=== PATIENT | male | born 1930 ===

== ENCOUNTER 2017-08-30 13:30 | Emergency (ER) | payer MEDICARE ==
[2017-08-30 14:07] VITALS: RESP 18
[2017-08-30 14:42] LABS: URINE BILIRUBIN NEGATIVE (NEGATIVE); URINE BLOOD NEGATIVE (NEGATIVE); URINE CLARITY Clear (Clear); URINE COLOR Yellow (YELLOW); URINE GLUCOSE (UA) NORMAL (Normal); URINE LEUKOCYTE ESTERASE NEG Leu/uL (Negative); URINE PROTEIN 2+ mg/dL (NEGATIVE); URINE UROBILINOGEN NORMAL mg/dL (0.2-1.0)
--- NOTE | 2017-08-30 15:08 | C.PDOC ---
History Of Present Illness Pt c/o being unable to urinate. Time Seen by Provider: 08/30/17 14:20 Chief Complaint (Nursing): Male Genitourinary History Per: Patient, Family, [employer] History/Exam Limitations: language barrier Onset/Duration Of Symptoms: Hrs (Since early this morning) Current Symptoms Are (Timing): Still Present Severity: Moderate Quality Of Discomfort: Pressure Associated Symptoms: Urinary Symptoms Alleviating Factors: None Additional History Per: Prior Records Past Medical History Reviewed: Historical Data, Nursing Documentation, Vital Signs Vital Signs: Last Vital Signs Temp 97.5 F L 08/30/17 14:02 Pulse 75 08/30/17 14:02 Resp 18 08/30/17 14:02 BP 165/90 H 08/30/17 14:02 Pulse Ox 98 08/30/17 14:02 - Medical History PMH: Benign Prostatic Hyperplasia, Gastritis, HTN, Hypothyroidism Family History: States: Unknown Family Hx - Social History Hx Alcohol Use: No Hx Substance Use: No - Immunization History Hx Tetanus Toxoid Vaccination: No Hx Influenza Vaccination: No Hx Pneumococcal Vaccination: No Review Of Systems Except As Marked, All Systems Reviewed And Found Negative. Constitutional: Negative for: Fever, Weakness Cardiovascular: Negative for: Chest Pain Respiratory: Negative for: Shortness of Breath Gastrointestinal: Positive for: Abdominal Pain (suprapubic) Genitourinary: Negative for: Hematuria, Scrotal Pain Musculoskeletal: Negative for: Neck Pain, Back Pain Skin: Negative for: Rash Neurological: Negative for: Weakness, Numbness Physical Exam - Physical Exam Appears: Non-toxic, Other (Uncomfortable) Skin: Normal Color, Warm, Dry Head: Atraumatic, Normacephalic Eye(s): bilateral: PERRL, EOMI Oral Mucosa: Moist Neck: Normal ROM, Supple Cardiovascular: Rhythm Regular Respiratory: Normal Breath Sounds, No Accessory Muscle Use Gastrointestinal/Abdominal: Distention (of urinary bladder) Back: No CVA Tenderness Extremity: Normal ROM, No Pedal Edema Neurological/Psych: Oriented x3, Normal Motor, Normal Sensation ED Course And Treatment O2 Sat by Pulse Oximetry: 98 Pulse Ox Interpretation: Normal Progress Note: De La Vega catheter was placed by RN with return of 600cc of yellow urine. Pt's pain/discomfort resolved. Reassessment Condition: Improved Disposition Counseled Patient/Family Regarding: Studies Performed, Diagnosis, Need For Followup - Disposition Referrals: Desmond Knapp Jr., MD [Staff Provider] - Stu Deluca MD [Staff Provider] - Disposition: HOME/ ROUTINE Disposition Time: 15:10 Condition: IMPROVED Additional Instructions: Follow up with your Urologist this week for further evaluation and treatment. Return to the ER if you develop fever, blood in urine, urine not coming out, abdominal pain, back pain, worsening of symptoms or if you have any other concerns. Instructions: Urinary Retention (DC), How to Care for Your De La Vega Catheter, Male Forms: [employer] ([place]) Print Language: FRISIAN - Clinical Impression Clinical Impression: Acute urinary retention
[2017-08-30 15:31] VITALS: BP 124/72; PULSE 69; TEMP 98; O2SAT 96
== END 2017-08-30 16:01 | disposition home or self-care (01) ==
LOC: C.ER 13:30
DX: N40.1 Benign prostatic hyperplasia with lower urinary tract symptoms (principal); R33.8 Other retention of urine; I10 Essential (primary) hypertension; E03.9 Hypothyroidism, unspecified